=== PATIENT | male | born 1975 | race Caucasian/White ===

== ENCOUNTER 2024-06-05 20:18 | Emergency (ER) | payer SELFPAY ==
[~2024-06-05] VITALS: Ht 177.8 cm; Wt 82.7 kg
[2024-06-05] MEDS ORDERED: Naloxone 0.4 MG/ML VIAL IV PRN (20:45)
[2024-06-05 21:00] VITALS: BP 135/77
[2024-06-05 21:09] LABS: BASO # 0.02 K/mm3 (0.02-0.10); EOS # 0.07 K/mm3 (0.04-0.40); EOS % 0.7 % (0.0-4.0); HEMATOCRIT 43.4 % (42.0-52.0); HEMOGLOBIN 14.2 g/dL (13.5-18.0); LYMPH# 1.17 K/mm3 (1.50-4.00); MEAN CELL VOLUME 92 fl (78-100); MEAN CORPUSCULAR HEMOGLOBIN 30 pg (27-31); MEAN CORPUSCULAR HGB CONC 33 g/dL (33-37); MEAN PLATELET VOLUME 9.4 fl (7.4-10.4); MONO # 0.81 K/mm3 (0.20-0.80); NEU # 8.52 K/mm3 (1.40-6.50); PLATELET COUNT 299 K/mm3 (130-400); RED BLOOD COUNT 4.72 M/mm3 (4.20-5.60); WHITE BLOOD COUNT 10.6 K/mm3 (4.8-10.8)
[2024-06-05 21:14] LABS: ALBUMIN 4.1 g/dL (3.5-5.0); SODIUM 141 mmol/L (136-145)
[2024-06-05 21:15] LABS: CALCIUM 8.9 mg/dL (8.3-10.5)
[2024-06-05 21:17] LABS: GLUCOSE 108 mg/dL (75-110); TOTAL PROTEIN 6.8 g/dL (6.4-8.3)
[2024-06-05 21:18] LABS: CARBON DIOXIDE 23 mmol/L (22-29)
[2024-06-05 21:19] LABS: TOTAL BILIRUBIN 0.2 mg/dL (0.2-1.2)
[2024-06-05 21:22] LABS: AST-SGOT 22 U/L (5-34)
[2024-06-05 21:23] LABS: ALCOHOL IN-HOUSE < 10 mg/dL (<10); ALT/SGPT 28 U/L (0-55)
== END 2024-06-05 21:10 | disposition left against medical advice (07) ==
LOC: ED 20:18 → EDBD 20:24 → ED 21:10
PROVIDERS: Nurse Practitioner
DX: T40.411A Poisoning by fentanyl or fentanyl analogs, accidental (unintentional), initial encounter (principal); R00.0 Tachycardia, unspecified; F17.210 Nicotine dependence, cigarettes, uncomplicated